=== PATIENT | female | born 1965 | race African-American/Black ===

== ENCOUNTER 2017-03-09 10:43 | Emergency (ER) | payer MEDICAID, OTHER ==
[~2017-03-09] VITALS: Ht 172.7 cm; Wt 81.6 kg
[~2017-03-09 10:43] MED LIST: KEFLEX500 MG ORAL; NAPROXEN375 MG PO; NORCO 5-325 TA1 EACH ORAL; VALIUM2 MG PO
[2017-03-09 11:07] VITALS: BP 120/80
[2017-03-09] MEDS ORDERED: KETOPROFEN50 MG PO (11:15)
[2017-03-09] MEDS ORDERED: ACETAMINOPHEN500 M5 PO (11:19)
[2017-03-09] MEDS ORDERED: CYCLOBENZAPRINE5 MG ORAL (11:19)
[2017-03-09] MEDS ORDERED: Dexamethasone 4mg/ml vial IM ONE (11:30)
[2017-03-09 12:23] VITALS: BP 120/80
--- NOTE | 2017-03-09 20:33 | Emergency Room Report ---
History of Present Illness General Chief Complaint: Allergic Reaction Source: Patient Present Illness HPI 52 yo F no sig pmhx p/w throat pain. pt states sore throat, worse with eating, slight runny nose, still has been able to eat/drink. no changes in voice. no tongue/lip swelling. no sob. pt states she has been taking flexeril and tylenol as given by her doctor, she states she feels like it may have to do w/ the medications. denies any rash, or any throat swelling. states no hx of allergies. Allergies: Coded Allergies: SULFA(SULFONAMIDE ANTIBIOTICS) (Verified Allergy, Intermediate, RASH, 04/07) Patient History Past Medical History: none Past Surgical History: none Pertinent Family History: none Now: No Nursing Documentation-PMH Past Medical History: No Stated History Review of Systems ENT: Reports: throat pain All Other Systems: negative except mentioned in HPI Physical Exam Vital Signs Date Time Temp Pulse Resp B/P Pulse Ox O2 Delivery O2 Flow Rate FiO2 17 10:50 98.1 63 15 120/80 99 Room Air Sp02 EP Interpretation: reviewed, normal General Appearance: normal inspection, well appearing, no apparent distress, alert, GCS 15, non-toxic Head: normocephalic, atraumatic Eyes: bilateral eye EOMI, bilateral eye PERRL, bilateral eye normal inspection ENT: normal voice, uvula midline - no , other - +mild tonsillar erythema, no uvula enlargement or deviation, no tonsillar enlargement. no exudates Neck: normal inspection, full range of motion, supple, no bony tend Respiratory: normal inspection, lungs clear, normal breath sounds, no respiratory distress, no retraction, no wheezing, speaking full sentences, chest symmetrical Cardiovascular #1: normal inspection, regular rate, rhythm, no edema, normal capillary refill Gastrointestinal: normal inspection, non tender, soft, non-distended, no guarding Musculoskeletal: normal inspection, back normal, normal range of motion, non- tender Neurologic: normal inspection, alert, oriented x3, responsive, justice of the peace III-XII nml as tested, motor strength/tone normal, sensory intact, normal gait, speech normal Psychiatric: normal inspection, judgement/insight normal, memory normal Skin: normal inspection, normal color, no rash, warm/dry, well hydrated, normal turgor Medical Decision Making Diagnostic Impression: Primary Impression: Drug allergy Additional Impression: Pharyngitis ER Course 52 yo F with sore throat DDX: viral vs. infectious mononucleosis vs. bacterial pharyngitis vs. allergies Other serious causes such as MEDICAL STAFF PHYSICIAN / RPA / deep space neck infection history/physical most consistent with viral pharyngitis Plan: decadron, supportive care. Abx not indicated at this time ER course: Patient remains stable in ED. Pt states improvement of pain. no signed of angioedema during stay Disposition: Patient will be discharged to home. Patient will follow up with primary care doctor within 5 days. Strict return precautions discussed with patient such as worsening throat pain/swelling, dysphagia, high fever or chills, shortness of breath, abdominal pain, which may indicate severe illness. Patient verbalized understanding and agreed with plan. Last Vital Signs Date Time Temp Pulse Resp B/P Pulse Ox O2 Delivery O2 Flow Rate FiO2 03/09/17 12:23 98.1 63 15 120/80 99 Room Air Disposition: HOME, SELF-CARE Condition: Improved Referrals: [facility]ERR[facility] (PCP) Patient Instructions: Drug Allergy, Pharyngitis, [id number] Additional Instructions: PLEASE FOLLOW UP WITH YOUR DOCTOR WITHIN 2 DAYS Esteban Waldron M.D. Mar 09, 2017 20:32
== END 2017-03-09 12:33 | disposition home or self-care (01) ==
LOC: EMR 11:20
DX: J02.9 Acute pharyngitis, unspecified (principal); T50.995A Adverse effect of other drugs, medicaments and biological substances, initial encounter; Y92.9 Unspecified place or not applicable; Z88.2 Allergy status to sulfonamides
CPT/HCPCS: 96372; 99283; J1100

== ENCOUNTER 2017-11-13 13:53 | Emergency (ER) | payer OTHER ==
[~2017-11-13] VITALS: Ht 170.2 cm; Wt 67.1 kg
[~2017-11-13 13:53] MED LIST changes: +ACETAMINOPHEN500 M5 PO; +CYCLOBENZAPRINE5 MG ORAL; +KETOPROFEN50 MG PO
[2017-11-13 14:20] VITALS: BP 102/59
[2017-11-13 14:43] LABS: APPEARANCE,URINE CLEAR; BILIRUBIN, URINE NEGATIVE (NEGATIVE); COLOR,URINE PALE YELLOW; GLUCOSE, URINE (UA) NEGATIVE (NEGATIVE); KETONES,URINE NEGATIVE (NEGATIVE); LEUKOCYTE ESTERASE ,URINE 2+ (NEGATIVE); NITRITE,URINE NEGATIVE (NEGATIVE); PH,URINE 6.5 (4.5-8.0); PROTEIN,URINE NEGATIVE (NEGATIVE); UROBILINOGEN,URINE NORMAL MG/DL (0.0-1.0)
[2017-11-13] MEDS ORDERED: Ketorolac 60mg Inj IM ONE (14:45)
[2017-11-13] MEDS ORDERED: traMADol 50mg tab ORAL ONE (14:45)
--- NOTE | 2017-11-13 16:46 | Diagnostic Imaging Report ---
Indication: Pelvic pain. Negative test Technique: Transabdominal and transvaginal images Comparison: none Findings: Uterus measures 6.1 cm in length by 3.4 cm AP. Endometrium measures 2 mm thick. Shadowing in the cervical region likely reflects a surface area and section scar. No other myometrial abnormality. Small cervical nabothian cyst is noted. The left ovary measures 1.7 cm in length. Right ovary measures 1.3 cm in length. Normal ovarian blood flow demonstrated. No free cul-de-sac fluid Impression: Essentially unremarkable exam. Incidental findings as noted
--- NOTE | 2017-11-13 16:50 | Diagnostic Imaging Report ---
Indication: Pain Technique: One view of the pelvis Comparison: none Findings: No acute fractures. No dislocations. Joint spaces are preserved. There are minimal degenerative proliferative changes of the pubic symphysis Impression: No acute process
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
[2017-11-13] MEDS ORDERED: TRAMADOL HCL50 MG ORAL (17:45)
[2017-11-13] MEDS ORDERED: NITROFURANTOIN100 M2 ORAL (17:45)
[2017-11-13] MEDS ORDERED: PHENAZOPYRIDIN200 MG ORAL (17:45)
[2017-11-13 17:52] VITALS: BP 110/65
--- NOTE | 2017-11-14 08:50 | Diagnostic Imaging Report ---
Indications: Pain Technique: Two views of the thoracic spine Comparison: None Findings: When alignment is normal. Vertebral body heights are preserved. Disc spaces are preserved. No acute fractures. No gross paraspinous mass. Pedicles are intact Impression: Negative
== END 2017-11-13 17:57 | disposition home or self-care (01) ==
LOC: EMR 14:35
DX: N88.8 Other specified noninflammatory disorders of cervix uteri (principal); M54.9 Dorsalgia, unspecified; N39.0 Urinary tract infection, site not specified; Z88.2 Allergy status to sulfonamides
CPT/HCPCS: 72070; 72170; 76830; 76856; 81003; 96372; 99284